=== PATIENT | female | born 1960 | race Two or more races ===

== ENCOUNTER 2019-10-08 09:38 | Emergency (ER) | payer MEDICAID, OTHER ==
[~2019-10-08] VITALS: Ht 170.2 cm; Wt 83.9 kg
[2019-10-08] MEDS ORDERED: SODIUM CHLORIDE 0.9% 1,000 ML IV ONE (09:50)
[2019-10-08 11:02] LABS: Basophils # (auto) 0.1 10 ^3/uL (0-0.2); Basophils % (auto) 0.5 % (0.0-2.0); Eosinophils # (auto) 0.1 10 ^3/uL (0-0.8); Eosinophils % (auto) 1.1 % (0.0-7.0); Hemoglobin 15.4 g/dL (12.2-16.2); Lymphocytes # (auto) 1.4 10 ^3/uL (0.4-5.4); Mean Corpuscular Hemoglobin 27.9 pg (28.0-32.0); Mean Corpuscular Hgb Conc. 32.1 g/dL (32.0-36.0); Monocytes # (auto) 0.4 10 ^3/uL (0-1.3); Monocytes % (auto) 3.6 % (0.0-12.0); Neutrophils # (auto) 9.3 10 ^3/uL (1.6-8.6); Neutrophils % (auto) 82.8 % (37.0-80.0); Nucleated Red Blood Cells % 0.1 %; Platelet Count (auto) 387 10^3/uL (140-450); Red Blood Cells 5.52 10^6/uL (4.0-5.20); Red Cell Distribution Width 13.8 % (11.8-14.3); White Blood Cell 11.3 10^3/uL (4.4-10.8)
[2019-10-08 11:27] LABS: Albumin 3.6 g/dL (3.4-5.0); Anion Gap 4 (5-15); Blood Urea Nitrogen 13 mg/dL (7-18); Calcium 9.2 mg/dL (8.5-10.1); Carbon Dioxide 27 mmol/L (21-32); Chloride 107 mmol/L (98-107); Glucose 106 mg/dL (74-106); Sodium 138 mmol/L (136-145)
[2019-10-08 11:31] LABS: Alanine Aminotransferase 23 U/L (13-56); Alkaline Phosphatase 122 U/L (45-117); Aspartate Aminotransferase 21 U/L (15-37); BUN/Creatinine Ratio 14.3; Bilirubin, Total 0.5 mg/dL (0.2-1.0); GFR African American 82 mL/min; GFR Non-African American 67 mL/min; Total Protein 8.5 g/dL (6.4-8.2)
[2019-10-08 12:29] VITALS: BP 157/86
[2019-10-08 12:45] LABS: Urine Bacteria NONE SEEN /hpf (None Seen); Urine Blood TRACE /uL (Negative); Urine Specific Gravity 1.016 (1.001-1.035); Urine WBC 1 /hpf (0 - 5)
== END 2019-10-08 13:13 | disposition home or self-care (01) ==
LOC: EDBD 09:38 → ER 09:38
DX: S09.90XA Unspecified injury of head, initial encounter (principal); R42 Dizziness and giddiness; D72.829 Elevated white blood cell count, unspecified; X58.XXXA Exposure to other specified factors, initial encounter; Y93.89 Activity, other specified; Y92.89 Other specified places as the place of occurrence of the external cause; Y99.8 Other external cause status
CPT/HCPCS: 36415; 70450; 80053; 81001; 84484; 85025; 96360; 99285; J7030; 93005

== ENCOUNTER 2023-08-19 08:09 | Emergency (ER) | payer MEDICAID ==
[~2023-08-19] VITALS: Ht 170.2 cm; Wt 85.4 kg
[2023-08-19 08:47] VITALS: BP 130/79; RESP 16; TEMP 97.4; O2SAT 98
[2023-08-19 08:54] VITALS: PULSE 77
[2023-08-19 09:26] LABS: Urine Bacteria FEW /hpf (None Seen); Urine Blood 2+ /uL (Negative); Urine Clarity Turbid (Clear); Urine Color Yellow (Yellow); Urine Hyaline Cast FEW /lpf (0 - 2); Urine Mucus FEW (None Seen); Urine Protein, UAD TRACE (Negative); Urine Specific Gravity 1.022 (1.001-1.035); Urine Urobilinogen Normal (Negative); Urine WBC 81 /hpf (0 - 5)
[2023-08-19 09:32] LABS: Basophils # (auto) 0.1 10 ^3/uL (0-0.2); Basophils % (auto) 0.7 % (0.0-2.0); Eosinophils # (auto) 0.2 10 ^3/uL (0-0.8); Eosinophils % (auto) 2.4 % (0.0-7.0); Hematocrit 42.1 % (36.0-46.0); Hemoglobin 14.3 g/dL (12.2-16.2); Mean Corpuscular Hemoglobin 28.7 pg (28.0-32.0); Mean Corpuscular Hgb Conc. 34.1 g/dL (32.0-36.0); Mean Corpuscular Volume 84.3 fL (80.0-100.0); Monocytes # (auto) 0.4 10 ^3/uL (0-1.3); Monocytes % (auto) 4.9 % (0.0-12.0); Neutrophils # (auto) 5.3 10 ^3/uL (1.6-8.6); Nucleated Red Blood Cells % 0.1 %; Red Cell Distribution Width 13.4 % (11.8-14.3); White Blood Cell 7.9 10^3/uL (4.4-10.8)
[2023-08-19 09:34] LABS: Chloride 109 mmol/L (98-107); Potassium 3.8 mmol/L (3.5-5.1); Sodium 140 mmol/L (136-145)
[2023-08-19 09:35] LABS: Anion Gap 4 (5-15); Calcium 9.9 mg/dL (8.5-10.1); Carbon Dioxide 27 mmol/L (20-30)
[2023-08-19] MEDS: KETOROLAC TROMETH 60MG/2ML VIAL IM ONE (09:38)
[2023-08-19 09:40] LABS: BUN/Creatinine Ratio 9.6 (10.0-20.0); Blood Urea Nitrogen 9 mg/dL (9-23); Glucose 104 mg/dL (74-106)
[2023-08-19] MEDS ORDERED: IBUP-1456 PO (10:05)
[2023-08-19] MEDS ORDERED: METH-1182 PO (10:05)
[2023-08-19] MEDS ORDERED: BACDST PO (10:05)
== END 2023-08-19 10:19 | disposition home or self-care (01) ==
LOC: ER 08:09
DX: R07.89 Other chest pain (principal); N39.0 Urinary tract infection, site not specified
CPT/HCPCS: 36415; 71045; 80048; 81001; 84484; 85025; 93005; 96372; 99285; J1885

== ENCOUNTER 2024-02-15 10:53 | Emergency (ER) | payer MEDICAID ==
[~2024-02-15] VITALS: Ht 170.2 cm; Wt 90.6 kg
[~2024-02-15 10:53] MED LIST: BACDST PO; IBUP-1456 PO; METH-1182 PO
[2024-02-15 12:18] LABS: Urine Bacteria None Seen /hpf (None Seen)
[2024-02-15 12:31] LABS: Urine Blood 2+ /uL (Negative); Urine Clarity Clear (Clear); Urine Color Yellow (Yellow); Urine Protein, UAD TRACE (Negative); Urine Specific Gravity 1.029 (1.001-1.035); Urine Urobilinogen 2 mg/dL (Negative); Urine WBC 21 /hpf (0 - 5)
[2024-02-15 15:31] VITALS: BP 149/77; PULSE 67; RESP 16; TEMP 98.4; O2SAT 97
--- NOTE | 2024-02-15 16:14 | DVH ---
TRANSABDOMINAL AND ENDOVAGINAL PELVIC ULTRASOUND CLINICAL HISTORY: pain TECHNIQUE: Multiple transabdominal and endovaginal grayscale sonographic images of the pelvis were obtained. Comparison: None FINDINGS: Uterus measures 8.0 x 4.7 x 3.7 cm. The uterine myometrium demonstrates heterogeneous echotexture. There is a 1.0 x 0.8 cm fundal leiomyoma. Endometrial stripe measures 3 mm. Right ovary measures 3.2 x 2.0 x 1.7 cm and grossly appears within normal limits. The left ovary is not seen on the current ultrasound study. There is no free fluid in the cul-de-sac. IMPRESSION: 1.Heterogeneous uterine myometrium. There is a 1.0 cm fundal leiomyoma. 2.The right ovary grossly appears within normal limits. The left ovary is not seen on the current s tudy. HS:Y
--- NOTE | 2024-02-15 18:57 | ED.PDOC ---
History of Present Illness HPI Comments This is a 63-year-old female who comes in with chief complaint of lower abdominal pain. The patient states that the symptoms started months ago. She denies any dysuria and states that the pain is a 0/10 right now. She is having some mild nausea but no fever. She is currently being worked up by her primary care doctor. The patient will follow up with the primary physician. Chief Complaint: Pelvic Pain Time Seen by MD: 11:00 Primary Care Provider: YA Rubio Notes: Nurses Notes, Medications, Allergies (No allergies to medications) Allergies: Coded Allergies: NO KNOWN ALLERGIES (Unverified , 10/08/19) Home Meds Active Scripts Ciprofloxacin Hcl (Cipro) 500 Mg Tab, 1 TAB PO BID, #14 TAB Prov:JOHN VALENTINO MD 02/15/24 Methocarbamol (Methocarbamol) 750 Mg Tab, 750 MG PO BID, #20 TAB Prov:ELVI MONTIEL 08/19/23 Ibuprofen (Ibuprofen) 800 Mg Tab, 1 TAB PO TID, #30 TAB Prov:ELVI MONTIEL 08/19/23 Sulfamethoxazole W/Trimethopri (Bactrim Ds Tablet) 1 Tab Tb, 1 TAB PO BID for 7 Days, #14 TAB Prov:ELVI MONTIEL 08/19/23 Information Source: Patient Mode of Arrival: Ambulatory Severity: Mild Timing: Months Duration: Intermittent Prehospital treatment: None Quality Sharp lower abdominal pain Past Medical History PAST MEDICAL HISTORY: Denies Surgical History: Denies all surgeries TUBE BENDER HAND History: No Pertinent TUBE BENDER HAND History Family History Family History: Reviewed,noncontributory to illness Social History Smoker: Non-Smoker Alcohol: Denies ETOH Use Drugs: Denies Drug Use Lives In: Home Constitutional: denies: chills, diaphoresis, fatigue, fever, malaise, sweats, weakness, others EENTM: denies: blurred vision, double vision, ear bleeding, ear discharge, ear drainage, ear pain, ear ringing, eye pain, eye redness, hearing loss, mouth pain, mouth swelling, nasal discharge, nose bleeding, nose congestion, nose pain, photophobia, tearing, throat pain, throat swelling, voice changes, others Respiratory: denies: cough, hemoptysis, orthopnea, SOB at rest, shortness of breath, SOB with excertion, stridor, wheezing, others Cardiovascular: denies: chest pain, dizzy spells, diaphoresis, Dyspnea on exertion, edema, irregular heart beat, left arm pain, lightheadedness, palpitations, PND, syncope, others Gastrointestinal: denies: abdomen distended, abdominal pain, blood streaked bowels, constipated, diarrhea, dysphagia, difficulty swallowing, hematemesis, melena, nausea, poor appetite, poor fluid intake, rectal bleeding, rectal pain, vomiting, others Genitourinary: denies: abnormal vagina bleeding, burning, dyspareunia, dysuria, flank pain, frequency, hematuria, incontinence, pain, , vagina discharge, urgency, others Neurological: denies: dizziness, fainting, headache, left sided numbness, left sided weakness, numbness, paresthesia, pre-existing deficit, right sided numbness, right sided weakness, seizure, speech problems, tingling, tremors, weakness, others Musculoskeletal: denies: back pain, gout, joint pain, joint swelling, muscle pain, muscle stiffness, neck pain, others Integumetry: denies: bruises, change in color, change in hair/nails, dryness, laceration, lesions, lumps, rash, wounds, others Allergic/Immunocompromised: denies: Difficulty Healing, Frequent Infections, Hives, Itching, others Hematologic/Lymphatic: denies: anemia, blood clots, easy bleeding, easy bruising, swollen glands, others Endocrine: denies: excessive hunger, excessive sweating, excessive thirst, excessive urination, flushing, intolerance to cold, intolerance to heat, unexplained weight gain, unexplained weight loss, others Psychiatric: denies: anxiety, bipolar disorder, depression, hopeless, panic disorder, schizophrenia, sleepless, suicidal, others Physical Exam General Appearance: Mild Distress HEENT: Normal ENT Inspection, Pharynx Normal, TMs Normal Neck: Full Range of Motion, Non-Tender, Normal, Normal Inspection Respiratory: Chest Non-Tender, Lungs Clear, No Accessory Muscle Use, No Respiratory Distress, Normal Breath Sounds Cardiovascular: No Edema, No JVD, No Murmur, No Gallop, Normal Peripheral Pulses, Regular Rate/Rhythm Breast Exam: Deferred Gastrointestinal: No Organomegaly, No Pulsatile Mass, Normal Bowel Sounds, Soft, Suprapubic, Tenderness Genitalia: Deferred Pelvic: Deferred Rectal: Deferred Extremities: No calf tenderness, Normal capillary refill, Normal inspection, Normal range of motion, Non-tender, No pedal edema Musculoskeletal : Apperance: Normal Neurologic: Alert, divisional merchandising manager II-XII nml as Tested, No Motor Deficits, Normal Affect, Normal Mood, No Sensory Deficits Cerebellar Function: Normal Reflexes: Normal Skin: Dry, Normal Color, Warm Lymphatic: No Adenopathy Was a procedure done? Was a procedure done?: No Differential Dx Considerations may include: UTI X-Ray, Labs, Meds, VS Vital Signs Date Time Temp Pulse Resp B/P (MAP) Pulse Ox O2 Delivery O2 Flow Rate FiO2 02/15/24 15:33 Room Air* 0 21 02/15/24 15:31 98.4 67 16 149/77 (101) 97 98.4 02/15/24 11:18 98.5 82 18 143/58 (86) 95 02/15/24 11:18 98.5 82 18 143/58 (86) 95 98.5 Lab Test 02/15/24 11:15 Range/Units Urine Color Yellow Yellow Urine Clarity Clear Clear Urine pH 5.0 5.0-9.0 Urine Specific [place] 1.029 1.001-1.035 Urine Protein Trace H Negative Urine Ketones Negative Negative Urine Blood 2+ H Negative /uL Urine Nitrite Negative Negative Urine Bilirubin Negative Negative Urine Urobilinogen 2 H Negative mg/dL Urine Leukocyte Esterase 2+ Negative /uL Urine RBC 33 0 - 4 /hpf Urine WBC 21 0 - 5 /hpf Urine Squamous Epithelial Cells Few <5 /hpf Urine Bacteria None seen None Seen /hpf Urine Glucose Normal Normal mg/dL The urine test is positive for UTI The patient was given a prescription of Cipro The patient will follow up with the primary care doctor The patient will return to the emergency department's condition worsens. Time of 1ST Reevaluation: 19:30 Reevaluation 1ST: Improved Patient Education/Counseling: Diagnosis, Treatment, Prognosis, Need For Follow Up Family Education/Counseling: No Family Present Departure 1 Departure Time of Disposition: 19:30 Impression: Primary Impression: Acute UTI (urinary tract infection) Additional Impression: Pelvic pain Disposition: HOME / SELF CARE / HOMELESS Condition: Fair e-Prescriptions Ciprofloxacin Hcl (Cipro) 500 Mg Tab 1 TAB PO BID, #14 TAB Prov: JOHN VALENTINO MD 12/11/24 Discharged With: Self Critical Care Note Critical Care Time?: No Stability Stability form required: No Heart Score Heart Score: Heart Score Response (Comments) Value History N/A 0 EKG N/A 0 Age N/A 0 Risk Factors N/A 0 Troponin N/A 0 Total 0 JOHN VALENTINO MD Feb 15, 2024 18:57
[2024-02-15] MEDS ORDERED: CIPR-173 PO (19:02)
== END 2024-02-15 21:58 | disposition home or self-care (01) ==
LOC: ER 10:53
DX: N39.0 Urinary tract infection, site not specified (principal); R10.2 Pelvic and perineal pain; Z79.899 Other long term (current) drug therapy
CPT/HCPCS: 76830; 76856; 81001

== ENCOUNTER 2024-02-20 07:51 | Emergency (ER) | payer MEDICAID ==
[~2024-02-20] VITALS: Ht 170.2 cm; Wt 97.5 kg
[~2024-02-20 07:51] MED LIST changes: +CIPR-173 PO
[2024-02-20 08:12] VITALS: BP 148/69; PULSE 87; RESP 16; O2SAT 97
--- NOTE | 2024-02-20 09:25 | ED.PDOC ---
History of Present Illness HPI Comments 63-year-old female, with a history of arthritis, chronic pain syndrome, and obesity, presents with complaint of bilateral pelvic, suprapubic abdominal, lower back, and inner, left thigh pain for 1 week, today. Patient endorses on a having symptoms, intermittently, for years, with most recent onset taking place this week. Patient comments on movements, such as putting on pants, exacerbating pain. She states on consulting her PCP regarding symptoms and being referred to consult with a urologist regarding issues but has, yet, to schedule an appointment with said specialist. She also mentions previous [facility] ED visit 2 days ago for same symptoms, that she states on leaving against medical advice, due to long wait periods to be updated on imaging studies reports. Patient reports no additional relevant and pertinent history, such as recent injuries or strenuous activities. She denies having any urinary symptoms, nausea, vomiting, numbness, tingling, feet chills, or other associated symptoms or modifiers at this time. Chief Complaint: Pelvic Pain Time Seen by MD: 08:45 Primary Care Provider: CROW Reviewed Notes: Nurses Notes, Medications, Allergies Allergies: Coded Allergies: NO KNOWN ALLERGIES (Unverified , 10/08/19) Home Meds Active Scripts Acetaminophen (Tylenol) 650 Mg Rc, 650 MG DE QID for 10 Days, #60 SUPP.RECT Prov:MARIAJOSE VAUGHAN MD 02/20/24 Ibuprofen (Ibuprofen) 400 Mg Tab, 400 MG PO TID for 10 Days, #30 TAB Prov:MARIAJOSE VAUGHAN MD 02/20/24 Ciprofloxacin Hcl (Cipro) 500 Mg Tab, 1 TAB PO BID, #14 TAB Prov:JOHN VALENTINO MD 02/15/24 Methocarbamol (Methocarbamol) 750 Mg Tab, 750 MG PO BID, #20 TAB Prov:ELVI MONTIEL 08/19/23 Ibuprofen (Ibuprofen) 800 Mg Tab, 1 TAB PO TID, #30 TAB Prov:ELVI MONTIEL 08/19/23 Sulfamethoxazole W/Trimethopri (Bactrim Ds Tablet) 1 Tab Tb, 1 TAB PO BID for 7 Days, #14 TAB Prov:ELVI MONTIEL 08/19/23 Information Source: Patient Mode of Arrival: Ambulatory Severity: Moderate Timing: Weeks Duration: Since onset Prehospital treatment: None Past Medical History PAST MEDICAL HISTORY: Arthritis Past Medical History (Other): Chronic pain syndrome, obesity Surgical History: Denies all surgeries HOME MANAGEMENT SUPERVISOR History: No Pertinent HOME MANAGEMENT SUPERVISOR History Family History Family History: Reviewed,noncontributory to illness Social History Smoker: Non-Smoker Alcohol: Denies ETOH Use Drugs: Denies Drug Use Lives In: Home Gastrointestinal: reports: abdominal pain (Suprapubic) Musculoskeletal: reports: back pain (Lower back), others (Bilateral pelvic and in her left thigh pain) All Other Systems: Reviewed and Negative (Negative unless otherwise stated above or in HPI) Physical Exam General Appearance: No Apparent Distress, Obese HEENT: Normal ENT Inspection, Pharynx Normal, TMs Normal Neck: Full Range of Motion, Non-Tender, Normal, Normal Inspection Respiratory: Chest Non-Tender, Lungs Clear, No Accessory Muscle Use, No Respiratory Distress, Normal Breath Sounds Cardiovascular: No Edema, No JVD, No Murmur, No Gallop, Normal Peripheral Pulses, Regular Rate/Rhythm Breast Exam: Deferred Gastrointestinal: No Organomegaly, Non Tender, No Pulsatile Mass, Normal Bowel Sounds, Soft Genitalia: Deferred Pelvic: Deferred Rectal: Deferred Extremities: No calf tenderness, Normal capillary refill, Normal inspection, Normal range of motion, Non-tender, No pedal edema Musculoskeletal : Apperance: Normal Neurologic: Alert, marine cargo surveyor II-XII nml as Tested, No Motor Deficits, Normal Affect, Normal Mood, No Sensory Deficits Cerebellar Function: Normal Reflexes: Normal Skin: Dry, Normal Color, Warm Lymphatic: No Adenopathy Was a procedure done? Was a procedure done?: No Differential Dx Considerations may include: Degenerative disc disease, arthritis, musculoskeletal pain, UTI X-Ray, Labs, Meds, VS Vital Signs Date Time Temp Pulse Resp B/P (MAP) Pulse Ox O2 Delivery O2 Flow Rate FiO2 02/20/24 08:12 97.7 87 16 148/69 (90) [address] [address] Ph: [phone] DIAGNOSTIC IMAGING Diagnostic Imaging Report : [id number] Signed PATIENT: HILARY GENAO ACCT: [id number] UNIT: [id number] : 1960 LOC: ER ROOM / BED: / AGE / SEX: 63 / F ADM STATUS: REG ER SERVICE 8 ORDERING PHYSICIAN: MARIAJOSE VAUGHAN MD PROCEDURE(s): RHIP - R HIP COMPLETE XRAY REASON: hip pain ORDER NUMBER(s): [id number], ACCESSION NUMBER(s): [id number] CLINICAL INDICATION: hip pain TECHNIQUE: For XY R HIP COMPLETE XRAY Comparison: None FINDINGS/IMPRESSION: : There is no evidence of acute fracture or dislocation. Moderate degenerative changes of bilateral hips. ATED BY: MOLINA GAVIRIA MD DICTATED DATE/TIME: 02/20/241020 SIGNED BY: MOLINA GAVIRIA MD SIGNED DATE/TIME: 02/20/24 102 CC: [place] [id number] Ph: [phone] DIAGNOSTIC IMAGING Diagnostic Imaging Report : [id number] Signed PATIENT: HILARY GENAO ACCT: [id number] UNIT: [id number] : 1960 LOC: ER ROOM / BED: / AGE / SEX: 63 / F ADM STATUS: REG ER SERVICE 8 ORDERING PHYSICIAN: MARIAJOSE VAUGHAN MD PROCEDURE(s): LHIP - L HIP COMPLETE XRAY REASON: hip pain ORDER NUMBER(s): [id number], ACCESSION NUMBER(s): [id number] CLINICAL INDICATION: hip pain TECHNIQUE: 3 XY L HIP COMPLETE XRAY Comparison: None FINDINGS/IMPRESSION: : There is no evidence of acute fracture or dislocation. Soft tissues are unremarkable. Moderate degenerative changes of bilateral hips. ATED BY: MOLINA GAVIRIA MD DICTATED DATE/TIME: 02/20/24 102 SIGNED BY: MOLINA GAVIRIA MD SIGNED DATE/TIME: 02/20/24 102 CC: Time of 1ST Reevaluation: 09:15 Reevaluation 1ST: Unchanged Patient Education/Counseling: Diagnosis, Treatment Family Education/Counseling: No Family Present Departure 1 Departure Time of Disposition: 11:45 Impression: Primary Impression: Degenerative joint disease of both hips Additional Impression: Bilateral hip pain Disposition: 01 HOME / SELF CARE / HOMELESS Condition: Stable e-Prescriptions Acetaminophen (Tylenol) 650 Mg Rc 650 MG DE QID for 10 Days, #60 SUPP.RECT Prov: MARIAJOSE VAUGHAN MD 02/20/24 Ibuprofen (Ibuprofen) 400 Mg Tab 400 MG PO TID for 10 Days, #30 TAB Prov: MARIAJOSE VAUGHAN MD 02/20/24 Critical Care Note Critical Care Time?: No Stability Stability form required: No Heart Score Heart Score: Heart Score Response (Comments) Value History N/A 0 EKG N/A 0 Age N/A 0 Risk Factors N/A 0 Troponin N/A 0 Total 0 I personally scribed for MARIAJOSE VAUGHAN MD ([email or web address]) on 02/20/24 at 09:25. Electronically submitted by Derek Vanegas ([email or web address]). I personally scribed for MARIAJOSE VAUGHAN MD ([email or web address]) on 02/20/24 at 11:47. Electronically submitted by Derek Vanegas ([email or web address]). MARIAJOSE VAUGHAN MD Feb 20, 2024 09:25
--- NOTE | 2024-02-20 10:23 | DVH ---
CLINICAL INDICATION: hip pain TECHNIQUE: For XY R HIP COMPLETE XRAY Comparison: None FINDINGS/IMPRESSION: : There is no evidence of acute fracture or dislocation. Moderate degenerative changes of bilateral hips.
--- NOTE | 2024-02-20 10:24 | DVH ---
CLINICAL INDICATION: hip pain TECHNIQUE: 3 XY L HIP COMPLETE XRAY Comparison: None FINDINGS/IMPRESSION: : There is no evidence of acute fracture or dislocation. Soft tissues are unremarkable. Moderate degenerative changes of bilateral hips.
[2024-02-20] MEDS ORDERED: ACE650RS PR (11:45)
[2024-02-20] MEDS ORDERED: IBUP-1453 PO (11:45)
== END 2024-02-20 12:51 | disposition home or self-care (01) ==
LOC: ER 07:51
DX: M16.0 Bilateral primary osteoarthritis of hip (principal); M25.551 Pain in right hip; M25.552 Pain in left hip; E66.9 Obesity, unspecified; Z68.33 Body mass index [BMI] 33.0-33.9, adult; Z79.1 Long term (current) use of non-steroidal anti-inflammatories (NSAID); Z79.899 Other long term (current) drug therapy
CPT/HCPCS: 73502